=== PATIENT | female | born 1955 | race Asian ===

== ENCOUNTER 2023-12-11 16:20 | Emergency (ER) | payer MEDICARE, MEDICAID ==
[~2023-12-11] VITALS: Ht 154.9 cm; Wt 61.4 kg
[~2023-12-11 16:20] MED LIST: AMLO10TA55 PO; ATOR-2 PO; COLL30OI TP; DULA1.5P SQ; LISI20TA24 PO; METF-446 PO; OMEP20CA12 PO; SITA25 PO
[2023-12-11 16:32] VITALS: TEMP 98
[2023-12-11] MEDS ORDERED: IOHEXOL 350 MG/ML 100 ML VIAL ONE (17:12)
[2023-12-11] MEDS ORDERED: SODIUM CHLORIDE 0.9% 100 ML ONE (17:13)
[2023-12-11 17:42] LABS: BASOPHILS % (AUTO) 0.8 % (0.0-2.0); EOSINOPHILS % (AUTO) 2.5 % (1.0-6.0); HEMATOCRIT 39.4 % (36-46); HEMOGLOBIN 12.8 g/dL (12.0-16.0); LYMPHOCYTES # (AUTO) 1.5 K/uL (1.0-4.8); LYMPHOCYTES % (AUTO) 24.6 % (22.0-44.0); MEAN CORPUSCULAR HEMOGLOBIN 30.9 pg (26.0-34.0); MEAN CORPUSCULAR HGB CONC 32.5 G/dL (31.0-37.0); MEAN CORPUSCULAR VOLUME 95 fL (80-100); MONOCYTES # (AUTO) 0.5 K/uL (0.1-1.0); MONOCYTES % (AUTO) 7.9 % (2.0-9.0); NEUTROPHILS % (AUTO) 64.2 % (40.0-70.0); PLATELET COUNT (AUTO) 220 K/uL (150-450); RED BLOOD CELL COUNT(AUTO) 4.16 MIL/uL (4.00-5.20); RED CELL DISTRIBUTION WIDTH 17.3 % (11.5-14.5); WHITE BLOOD COUNT (AUTO) 6.2 K/uL (4.5-11.0)
[2023-12-11] MEDS: SODIUM CHLORIDE 0.9% 1,000 ML IV ONE (17:43)
[2023-12-11 17:51] LABS: ANION GAP 10 mmol/L (8-16); CALCIUM, TOTAL 9.4 mg/dL (8.8-10.5); CARBON DIOXIDE 26 mmol/L (22-29); CHLORIDE 102 mmol/L (98-107); CREATININE 0.83 mg/dL (0.60-1.30); GLOMERULAR FILTR. RATE CALC > 60 mL/min (>60); GLUCOSE,RANDOM 128 mg/dL (70-110); POTASSIUM 3.9 mmol/L (3.5-5.1); SODIUM SERUM 138 mmol/L (136-145); UREA NITROGEN, BLOOD 12 mg/dL (7-18)
[2023-12-11 17:57] LABS: ALANINE AMINOTRANSFERASE 85 U/L (12-78); ALBUMIN 3.4 g/dL (3.4-5.0); ALKALINE PHOSPHATASE 81 U/L (46-116); ASPARTATE AMINOTRANSFERASE 52 U/L (15-37); BILIRUBIN,TOTAL 0.6 mg/dL (0.1-1.0); TOTAL PROTEIN, SERUM 7.7 g/dL (6.4-8.2)
[2023-12-11 17:58] LABS: LIPASE 32 U/L (16-77)
[2023-12-11 18:01] LABS: TROPONIN I-HIGH SENSITIVITY Less Than 4 ng/L (<51)
[2023-12-11 20:14] LABS: APPEARANCE,URINE CLEAR (CLEAR); BILIRUBIN,URINE NEGATIVE (NEGATIVE); COLOR,URINE LIGHT YELLOW (YELLOW); GLUCOSE, URINE (UA) NEGATIVE (NEGATIVE); KETONES,URINE NEGATIVE (NEGATIVE); LEUKOCYTE ESTERASE ,URINE NEGATIVE (NEGATIVE); NITRATE,URINE NEGATIVE (NEGATIVE); OCCULT BLOOD,URINE NEGATIVE (NEGATIVE); PH,URINE 5.5 (5.0-8.0); PROTEIN,URINE NEGATIVE (NEGATIVE); UROBILINOGEN,URINE <=1.0 mg/dL (<=1.0)
[2023-12-11 23:25] VITALS: BP 140/87; PULSE 92; RESP 18
[2023-12-11] MEDS ORDERED: OMEP20 PO (23:46)
[2023-12-11] MEDS ORDERED: MAG30ORA11 PO (23:46)
== END 2023-12-12 03:24 | disposition home or self-care (01) ==
LOC: EMS 16:20
DX: K21.9 Gastro-esophageal reflux disease without esophagitis (principal); E11.9 Type 2 diabetes mellitus without complications; E78.00 Pure hypercholesterolemia, unspecified; I10 Essential (primary) hypertension; Z88.0 Allergy status to penicillin; Z91.013 Allergy to seafood
CPT/HCPCS: 99285; 74177; 96360; 76705; 80048; 80076; 81003; 82962; 83690; 84484; 85025; 36415; 93005; Q9967; J7050

== ENCOUNTER 2023-12-12 04:51 | Emergency (ER) | payer MEDICARE, MEDICAID ==
[~2023-12-12] VITALS: Ht 160 cm; Wt 68.2 kg
[~2023-12-12 04:51] MED LIST changes: -AMLO10TA55 PO; -ATOR-2 PO; -COLL30OI TP; +MAG30ORA11 PO; +OMEP20 PO; -OMEP20CA12 PO; -SITA25 PO
[2023-12-12 05:09] VITALS: BP 156/76; PULSE 69; RESP 17; TEMP 97.4
== END 2023-12-12 11:45 | disposition home or self-care (01) ==
LOC: EMS 04:52
DX: K21.9 Gastro-esophageal reflux disease without esophagitis (principal); E11.9 Type 2 diabetes mellitus without complications; E78.00 Pure hypercholesterolemia, unspecified; I10 Essential (primary) hypertension; Z86.73 Personal history of transient ischemic attack (TIA), and cerebral infarction without residual deficits; Z88.0 Allergy status to penicillin; Z91.013 Allergy to seafood
CPT/HCPCS: 99283; Z7502

== ENCOUNTER 2023-12-17 22:24 | Emergency (ER) | payer MEDICARE, MEDICAID ==
[~2023-12-17] VITALS: Ht 160 cm; Wt 68.2 kg
[2023-12-17 22:49] VITALS: TEMP 98
[2023-12-18 02:23] VITALS: BP 132/69; PULSE 71; RESP 16
[2023-12-18] MEDS: PredniSONE 20 MG TABLET PO ONE (03:35)
[2023-12-18] MEDS: DiphenhydrAMINE HCL 25 MG CAPSULE PO ONE (03:35)
== END 2023-12-18 04:48 | disposition home or self-care (01) ==
LOC: MERGE 22:24 → EMS 22:24
DX: S00.83XA Contusion of other part of head, initial encounter (principal); L30.9 Dermatitis, unspecified; W19.XXXA Unspecified fall, initial encounter; Y93.89 Activity, other specified; Y92.091 Bathroom in other non-institutional residence as the place of occurrence of the external cause; Y99.8 Other external cause status
CPT/HCPCS: 99284; 70450; 73030; J7512

== ENCOUNTER 2023-12-26 19:33 | Emergency (ER) | payer MEDICARE, OTHER, MEDICAID | END 2023-12-26 22:03 | disposition left against medical advice (07) | LOC: EMS 19:33 | DX: Z53.21 Procedure and treatment not carried out due to patient leaving prior to being seen by health care provider (principal) ==

== ENCOUNTER 2024-03-10 02:51 | Emergency (ER) | payer MEDICARE, OTHER, MEDICAID ==
[2024-03-10] MEDS: MECLIZINE HCL 25 MG TABLET PO ONE (04:27)
== END 2024-03-10 10:20 | disposition left against medical advice (07) ==
LOC: EMS 02:52
DX: R42 Dizziness and giddiness (principal); E11.9 Type 2 diabetes mellitus without complications; I10 Essential (primary) hypertension; Z88.0 Allergy status to penicillin; Z91.013 Allergy to seafood
CPT/HCPCS: 99283